=== PATIENT | female | born 1980 ===

== ENCOUNTER 2017-09-29 13:09 | Emergency (ER) | payer OTHER ==
[2017-09-29 13:36] VITALS: BMI 38.4
[2017-09-29 20:01] VITALS: BP 119/69; PULSE 89; RESP 16; TEMP 98.2; O2SAT 100
--- NOTE | 2017-09-29 22:43 | OBHP ---
Datetime: 09/29/2017 22:34 IP Adm Impression: , intrauterine ; No Active Labor IP Admit Plan: Observation/Evaluation; Discharge home Admit Comment, IP Provider: 37-year-old at 28 weeks and 1 day gestational age presented to the ED with complaints of a elevated heart rate at home. Patient takes her blood pressures at home due t o chronic hypertension. Patient reports that a few values were elevated. Patient denies any chest celi n or shortness of breath. Patient denies any headaches or changes in vision. Patient denies any contr actions, vaginal bleeding, leakage of fluid. Patient had ultrasound done today and [facility]. At this time, patient without complaints. Past medical history chronic hypertension Past surgical history none Medications labetalol No known drug allergies Obstetrical history full-term normal spontaneous vaginal delivery times one Social history no tobacco, drugs, no alcohol Vital signs stable, patient remained normotensive with normal heart rate Assessment: 37-year-old at 28 weeks gestational age, maternal well-being and well-being reassuring at this time. Plan: Discharge patient home Patient will follow up with PMD is rescheduled FHR - Baseline A Provider: [id number] EGA AdmitDate IP: 28.1 Vital Signs Provider: Reviewed; Within Normal Limits IP Chief Complaint: Other NICHD Variability Prov Fetus A: Moderate 6-25bpm NICHD Accel Fetus A IP Provider: [id number] FHR Category Provider Fetus A: Category I NICHD Decel Fetus A IP Provider: None
== END 2017-09-29 14:53 | disposition home or self-care (01) ==
LOC: H.L&D 13:09 → H.EROB2 13:09
DX: O13.3 Gestational [pregnancy-induced] hypertension without significant proteinuria, third trimester (principal); Z3A.28 28 weeks gestation of pregnancy